=== PATIENT | male | born 1955 | race Caucasian/White ===

== ENCOUNTER 2017-03-08 12:10 | Emergency (ER) | payer OTHER ==
[~2017-03-08] VITALS: Ht 170.2 cm; Wt 80.5 kg
[2017-03-08 12:36] VITALS: BP 146/78; PULSE 81; RESP 16; TEMP 98.6; O2SAT 97
--- NOTE | 2017-03-08 13:45 | PD ---
HPI Chief Complaint: Injury Time Seen by Provider: 13:02 Travel History International Travel<30 days: No Contact w/Intl Traveler<30days: No Traveled to known affect area: No History of Present Illness HPI 61-year-old male presents to the emergency room for evaluation of right knee pain, swelling, and bruising after injuring it yesterday. 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 He had immediate pain. States he was able to finish his job yesterday without difficulty and has been ambulatory. Went to work today and the pain became too much. He has applied ice but not taken anything for symptoms. Denies paresthesias. Pain is localized to the lateral right knee without radiation. Worse with certain range of motion. No significant pain at rest. PFSH Past Medical History Medical History: Denies Significant Hx Past Surgical History Surgical History: No Previous Surgery Social History Alcohol Use: Yes (1/2 PPD) Tobacco Use: No Substance Use: No Allergies-Medications (Allergen,Severity, Reaction): Coded Allergies: No Known Allergies (Verified Allergy, Unknown, 03/08/17) Reported Meds & Prescriptions Reported Meds & Active Scripts Active Lortab (Hydrocodone-Acetaminophen) 5-325 Mg Tab 1 Tab PO Q6H PRN Review of Systems Except as stated in HPI: all other systems reviewed are Neg Physical Exam Narrative GENERAL: Well-nourished, well-developed male in no acute distress. Afebrile. Ambulatory. SKIN: Focused skin assessment warm/dry. Moderate to severe ecchymosis of the right knee. HEAD: Normocephalic. EYES: No scleral icterus. No injection or drainage. NECK: Supple, trachea midline. No JVD or lymphadenopathy. CARDIOVASCULAR: Regular rate and rhythm without murmurs, gallops, or rubs. RESPIRATORY: Breath sounds equal bilaterally. No accessory muscle use. MUSCULOSKELETAL: No cyanosis. Obvious effusion the right knee. Moderate edema extending into the calf. Extreme tenderness to palpation of the right lateral knee. No tenderness to palpation of the right ankle. 2+ dorsalis pedis pulse. Full range of motion with pain. Data Data Last Documented VS Vital Signs Date Time Temp Pulse Resp B/P (MAP) Pulse Ox O2 Delivery O2 Flow Rate FiO2 03/08/17 12:36 98.6 81 16 146/78 (100) 97 Orders Orders Knee, Complete (4vws) (03/08/17 ) Crutches (03/08/17 14:13) ^ Knee Immobilizer (03/08/17 14:13) MDM Medical Decision Making Medical Screen Exam Complete: Yes Emergency Medical Condition: Yes Medical Record Reviewed: Yes Differential Diagnosis Sprain, contusion, fracture Narrative Course 61-year-old male presents to the emergency room for evaluation of right knee pain, bruising, and swelling after injuring it yesterday at work. Patient fell and landed on his right knee on concrete. He had immediate pain but was able to finish working that day. States pain was too bad today so he came to the emergency room. Physical exam reveals extreme edema and ecchymosis of the right knee. It is externally tender to palpation over the lateral patella. Full range of motion but with pain. Right lower extremity is neurovascularly intact with 2+ dorsalis pedis pulse. There is extreme edema from the right knee into the right calf. X-ray is read as negative by the radiologist; however , my attending physician, Dr. Harmon, and I see a possible nondisplaced patellar fracture in 2 views on the x-ray. Patient will be treated conservatively with brace and crutches until he gets outpatient follow-up with an orthopedist. He was discharged with prescription for Lortab. Told to return to the emergency room for worsening symptoms. He understands and agrees to plan. Diagnosis Primary Impression: Right patella fracture Qualified Codes: S82.001A - Unspecified fracture of right patella, initial encounter for closed fracture Referrals: Primary Care Physician Med/Other Pt SpecificInfo: Prescription(s) given Scripts Hydrocodone-Acetaminophen (Lortab) 5-325 Mg Tab 1 TAB PO Q6H Y for PAIN, #12 TAB 0 Refills Prov: Doug Harmon MD 03/08/17 Disposition: 01 DISCHARGE HOME Condition: Stable Violeta Sesay Mar 08, 2017 13:45
--- NOTE | 2017-03-08 14:00 | RADRPT ---
EXAM DATE/TIME: 03/08/2017 13:36 [facility] COMPARISON: No previous studies available for comparison. INDICATIONS : Fell on right knee, swelling and pain, worse over patella MEDICAL HISTORY : None. SURGICAL HISTORY : None. ENCOUNTER: Initial ACUITY: 2 days PAIN SCORE: 8/10 LOCATION: Right knee FINDINGS: Soft tissue swelling patella with small joint effusion. Negative for fracture or significant degener ative changes. CONCLUSION: Soft tissue swelling and small joint effusion, negative for fracture. Jose J Wilson MD FACR on March 08, 2017 at 13:57 Board Certified Radiologist. This report was verified electronically.
[2017-03-08] MEDS ORDERED: HYDR-3533 PO (14:45)
== END 2017-03-08 14:56 | disposition home or self-care (01) ==
LOC: PHED 12:10 → PHEFT 14:56
DX: S82.001A Unspecified fracture of right patella, initial encounter for closed fracture (principal); W01.0XXA Fall on same level from slipping, tripping and stumbling without subsequent striking against object, initial encounter
CPT/HCPCS: 73564; 99283; E0113; L1830